=== PATIENT | male | born 1945 | race Two or more races ===

== ENCOUNTER → 2017-04-20 | Day surgery (SDC) | payer OTHER ==
[~2017-04-20] MED LIST: ACETAMINOPHEN 500 MG TAB PO PRN; ALBUTEROL 3 ML DEYVIAL IH PRN; BUPIVACAINE 0.5% 30 ML SDV ONE; HYDROCODONE/APAP 5/325 TAB PO PRN; INSULIN REGULAR HUMAN 100 UNIT/ML ONE; INSULIN REGULAR HUMAN 100 UNIT/ML SC ONE; LABETALOL HCL 5 MG/ML 20 ML MDV IVP PRN; LABETALOL HCL 50 MG/10 ML SYR ONE; LIDOCAINE 1% 2 ML INJ ONE; LIDOCAINE 1% 5 ML SDV ID PRN; LIDOCAINE 2% 5 ML SDV ONE; LR 1,000 ML IV SCH; NALOXONE HCL 0.4 MG/ML INJ IVP PRN; NS 500 ML IV ONE; ONDANSETRON 4 MG/2 ML VIAL ONE; ONDANSETRON DISINTEGRATING 4 MG TAB PO PRN; PAPAVERINE HCL 60 MG/2 ML SDV ONE; PROMETHAZINE HCL 25 MG/ML INJ IVP ONE; PROMETHAZINE HCL 25 MG/ML INJ ONE; PROPOFOL 200 MG/20 ML VIAL ONE; PROTAMINE SULFATE 50 MG/5 ML VIAL IVP ONE; THROMBIN (BOVINE) 20,000 UNIT SPRAY TP ONE; THROMBIN (BOVINE) 5,000 UNIT VIAL TP ONE; ceFAZolin 2 GM/DEXTROSE 100 ML IV ONE; fentaNYL 100 MCG/2 ML INJ IVP PRN; fentaNYL 100 MCG/2 ML INJ ONE
--- NOTE | 2017-04-20 06:55 | PDANEPAE ---
ANE History of Present Illness Patient presents for left AV -fistula. ANE Past Medical History - Cardiovascular History Hx Hypertension: Yes - Endocrine History Hx Diabetes: Yes ANE Review of Systems - Exercise capacity Exercise capacity: <4 METS ANE Patient History - Allergies Allergies/Adverse Reactions: No Allergies [NKDA] Allergy (Verified 04/19/17 21:30) ANE Labs/Vital Signs - Labs Result Diagrams: 04/20/17 06:40 04/20/17 06:40 - Labs - BMP Glucose: 157 ANE Physical Exam - Airway Neck exam: decreased ROM, increased neck circumference Mallampati Score: Class 3 Mouth exam: dentures - Pulmonary Pulmonary: no respiratory distress - Cardiovascular Cardiovascular: regular rate and rhythym - ASA Status ASA Status: III ANE Anesthesia Plan Anesthesia Plan: GA w LMA
[2017-04-20 06:56] LABS: % IMMATURE GRANULYOCYTES 0.6 % (0.0-1.1); ABSOLUTE IMMATURE GRANULOCYTES 0.05 10^3/uL (0.00-0.10); ADD DIFF? NO; ADD MORPH? NO; ADD SCAN? NO; ATYPICAL LYMPHOCYTE FLAG 0 (0-99); FRAGMENT RBC FLAG 0 (0-99); HEMATOCRIT 28.3 % (40.0-51.0); HEMOGLOBIN 9.6 g/dL (13.7-17.5); LEFT SHIFT FLG 0 (0-99); LIPEMIA HEMOLYSIS FLAG 90 (0-99); MEAN CELL HEMOGLOBIN 30.2 pg (27.9-34.1); MEAN CELL HEMOGLOBIN CONCENTR. 33.9 g/dL (32.4-36.7); MEAN PLATELET VOLUME 10.1 fL (8.7-11.7); PLATELET CLUMPS FLAG 0 (0-99); PLATELET COUNT 231 10^3/uL (150-400); RED BLOOD CELL COUNT 3.18 10^6/uL (4.40-6.38); RED CELL DISTRIBUTION WIDTH 14.8 % (11.5-15.2)
[2017-04-20 07:15] LABS: ANION GAP 12 mEq/L (8-16); CALCIUM 8.1 mg/dL (8.5-10.4); CARBON DIOXIDE 21 mEq/l (22-31); CHLORIDE 104 mEq/L (97-110); GLOMERULAR FILTRATION RATE 11; GLUCOSE 171 mg/dL (70-100); POTASSIUM 5.4 mEq/L (3.5-5.2); SODIUM 137 mEq/L (134-144)
--- NOTE | 2017-04-20 07:26 | PDGENHP ---
History and Physical History and Physical: 72 MALE DIABETIC FOR AVF/ RISKS AND OPTIONS FULLY DISCUSSED/ PT RT-HANDED PHX DIABETES/ HTN/ CRF NKA MEDS ASA, AMLODIPINE, LABETALOL, LEVOTHYROXINE, LOSARTON, NOVALOG, OMEPRAZOLE ZOCOR, HCO2 PE HEENT -BRUITS, -ADENOPATHY, - ORAL LESIONS CHEST CLEAR AND SYMMETRIC COR RR -M ABD SOFT, NONTENDER EXTREM FULL PULSES IMP RENAL FALURE IN NEED OF DIALYSIS ACCESS PLAN LEFT ARM AVF
--- NOTE | 2017-04-20 07:28 | PDHPUP ---
History & Physical Update H&P update statement: This history and physical update is based on an assessment of the patient which was completed after admission or registration (within 24 hours), but prior to the surgery/procedure. H&P update: H&P reviewed & patient examined, no change in patient's condition since H&P completed
--- NOTE | 2017-04-20 09:22 | POSTANESTH ---
Post Anesthetic Evaluation Cardiovascular Status: Normal, Stable Respiratory Status: Normal, Stable Level of Consciousness/Mental Status: Mildly Sleepy, Arousable Pain Control: Adequate, Prn Tx Ordered Nausea/Vomiting Control: Adequate, Prn Tx Ordered Complications Possibly Related to Anesthesia: None Noted
[2017-04-20 10:02] VITALS: PULSE 75
[2017-04-20 10:14] VITALS: TEMP 97.5
[2017-04-20] MEDS: ONDANSETRON 4 MG/2 ML VIAL IVP PRN ×2 (10:17→11:19)
[2017-04-20 11:44] VITALS: BP 161/70; RESP 14; O2SAT 96
--- NOTE | 2017-04-29 15:24 | GOP ---
[f rep st] OPERATIVE REPORT DATE OF OPERATION: 04/20/2017 SURGEON: Berry Hutchinson MD ACCOUNT SUPPORT MANAGER: ROBERTA Teixeira. ANESTHESIOLOGIST: Dr. Aburto. PREOPERATIVE DIAGNOSIS: Chronic renal failure. POSTOPERATIVE DIAGNOSIS: Chronic renal failure. PROCEDURE PERFORMED: Left arm ultrasound vein mapping and left brachial basilic transposition arteriovenous fistula. FINDINGS: Patient was found to have an inadequate cephalic vein at the wrist and at the upper arm, but an excellent basilic vein. DESCRIPTION OF PROCEDURE: Patient taken to the operating room, where he received satisfactory general endotracheal anesthesia. He was prepped and draped in the usual sterile fashion, his left arm out, extended on an arm board. He had general anesthesia by Dr. Aburto. Veins were then evaluated with ultrasound with the above-noted findings. It was elected to proceed with a basilic vein transposition. A curvilinear incision was made in the antecubital space and the dissection extended down through subcutaneous tissue and through the fascia. The brachial artery was identified and dissected free and controlled with vessel loops. The cephalic vein was identified. It was followed with the ultrasound. On the inside of the left arm a longitudinal excision was made, exposing the vein all the way up to the axilla and distal to the antecubital space, where it began to divide into multiple branches. It was divided at that point, was irrigated and appeared to be quite good. Multiple branches had been divided and hemoclipped and the vein was free for mobilization. It was then passed in a subdermal tunnel in the more anterior aspect of the arm. The patient was then systemically heparinized and an end-to- side anastomosis was made to the brachial artery, creating an 8 mm anastomosis. This was done with a running 6-0 Prolene suture. Flow was first established through the AV fistula and then back down to the hand. He maintained good flow in the fistula as well as a good radial pulse. Hemostasis was assured. The heparin was reversed with protamine. The wound was sprayed with some topical thrombin. A 15 round silicone drain was brought out through a separate stab incision and the wound was then closed using a running 2-0 Vicryl suture and skin neel for the skin. The wound was also infiltrated with 0.5% Marcaine. He tolerated the procedure well, taken to recovery room in good condition. /[id number]/MODL MTDD
== END | disposition home or self-care (01) ==
LOC: FSGY 05:09
PROVIDERS: ATTEND Surgery
PROC: 051 Upper Veins, Bypass (ICD-10-PCS; principal; 2017-04-20 07:15)
DX: E11.22 Type 2 diabetes mellitus with diabetic chronic kidney disease (principal); I12.9 Hypertensive chronic kidney disease with stage 1 through stage 4 chronic kidney disease, or unspecified chronic kidney disease; N18.4 Chronic kidney disease, stage 4 (severe); D63.1 Anemia in chronic kidney disease
CPT/HCPCS: J0690; J1644; J1815; J2405; J2440; J2550; J2704; J2720; J3010

== ENCOUNTER 2018-08-31 09:37 | Day surgery (SDC) | payer OTHER ==
[~2018-08-31 09:37] MED LIST changes: -ACETAMINOPHEN 500 MG TAB PO PRN; -ALBUTEROL 3 ML DEYVIAL IH PRN; +ALTEPLASE 2 MG VIAL IVP PRN; -BUPIVACAINE 0.5% 30 ML SDV ONE; +FLUMAZENIL 0.5 MG/5 ML MDV IVP PRN; +GLUCAGON HCL 1 MG VIAL IVP PRN; +HEPARIN 10,000 UNIT/10 ML MDV (1,000 UNIT/ML) IVP PRN; -HYDROCODONE/APAP 5/325 TAB PO PRN; -INSULIN REGULAR HUMAN 100 UNIT/ML ONE; -INSULIN REGULAR HUMAN 100 UNIT/ML SC ONE; -LABETALOL HCL 5 MG/ML 20 ML MDV IVP PRN; -LABETALOL HCL 50 MG/10 ML SYR ONE; -LIDOCAINE 1% 2 ML INJ ONE; -LIDOCAINE 1% 5 ML SDV ID PRN; -LIDOCAINE 2% 5 ML SDV ONE; -LR 1,000 ML IV SCH; +MEPERIDINE 25 MG/ML SYR IVP PRN; +MIDAZOLAM 2 MG/2 ML VIAL IVP PRN; +NS 1,000 ML IV SCH; -NS 500 ML IV ONE; -ONDANSETRON 4 MG/2 ML VIAL ONE; -ONDANSETRON DISINTEGRATING 4 MG TAB PO PRN; -PAPAVERINE HCL 60 MG/2 ML SDV ONE; -PROMETHAZINE HCL 25 MG/ML INJ IVP ONE; -PROMETHAZINE HCL 25 MG/ML INJ ONE; -PROPOFOL 200 MG/20 ML VIAL ONE; -PROTAMINE SULFATE 50 MG/5 ML VIAL IVP ONE; +PROTAMINE SULFATE 50 MG/5 ML VIAL IVP PRN; -THROMBIN (BOVINE) 20,000 UNIT SPRAY TP ONE; -THROMBIN (BOVINE) 5,000 UNIT VIAL TP ONE; -ceFAZolin 2 GM/DEXTROSE 100 ML IV ONE; -fentaNYL 100 MCG/2 ML INJ ONE
--- NOTE | 2018-08-31 13:03 | PDRADPRE ---
Radiology History & Physical Indication for procedure: other (AVF check) Home medications: Aspirin 81 mg PO DAILY 08/30/18 [Last Taken 08/30/18] Insulin Syringe 08/30/18 [Last Taken Unknown] Tums 500MG (*) 2 tab PO PRN 08/30/18 [Last Taken Unknown] Acetaminophen 650 mg PO PRN 08/31/18 [Last Taken 08/30/18] Amlodipine Besylate 10 mg PO DAILY 08/31/18 [Last Taken 08/30/18] Labetalol HCl 200 mg PO DAILY 08/31/18 [Last Taken 08/30/18] Levothyroxine 125 mcg PO DAILY 08/31/18 [Last Taken 08/30/18] Loratadine 10 mg PO DAILY 08/31/18 [Last Taken 08/30/18] Novolog Flexpen 5 units SQ BID 08/31/18 [Last Taken 08/30/18] Omeprazole 20 mg PO DAILY 08/31/18 [Last Taken 08/30/18] SIMVASTATIN 20 mg PO DAILY 08/31/18 [Last Taken 08/30/18] Vitamin D3 5,000 units PO DAILY 08/31/18 [Last Taken 08/30/18] Allergies/Adverse Reactions: No Allergies [NKDA] Allergy (Verified 04/19/17 21:30) Mental status: A&Ox3 Heart exam: regular rate and rhythm
--- NOTE | 2018-08-31 13:03 | PDPROPOC ---
Sedation Plan of Care ASA Classification: ASA 2 Mallampati Score: Class 2 Mallampati Reference Image:
[2018-08-31] MEDS ORDERED: IOPAMIDOL (ISOVUE-300) 100 ML BTL ONE (13:38)
[2018-08-31] MEDS ORDERED: ONDANSETRON 4 MG/2 ML VIAL IVP PRN (13:40)
[2018-08-31] MEDS ORDERED: ACETAMINOPHEN 325 MG TAB PO PRN (13:40)
[2018-08-31] MEDS ORDERED: LIDOCAINE 1% 300 MG/30 ML SDV ONE (13:41)
--- NOTE | 2018-08-31 13:41 | PDRADPN ---
Radiology Procedure Note Date of Procedure: 08/31/18 Radiologist: Rosina Ruffin Pre-op Diagnosis: AV Graft Post-op Diagnosis: Same Procedure: Fistulogram Inf/Abcess present in the surg proc area at time of surgery?: No
[2018-08-31 15:01] VITALS: BP 154/70
== END 2018-08-31 16:09 | disposition home or self-care (01) ==
LOC: FIMAGING 09:37
PROVIDERS: ATTEND Radiology Diagnostic Radiology
PROC: B31N1ZZ Fluoroscopy of Other Upper Arteries using Low Osmolar Contrast (ICD-10-PCS; principal; 2018-08-31 13:46)
DX: I77.0 Arteriovenous fistula, acquired (principal)
CPT/HCPCS: J1644; J2250; J2310; J3010; Q9967